=== PATIENT | female | born 1990 | race African-American/Black ===

== ENCOUNTER 2019-09-26 08:25 | Emergency (ER) | payer MEDICARE, MEDICAID ==
[~2019-09-26] VITALS: Ht 160 cm; Wt 78.9 kg
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
[2019-09-26] MEDS ORDERED: ALBU0.63 NEB (08:48)
--- NOTE | 2019-09-26 09:16 | NUR ---
PATIENT IN CT SCAN.
--- NOTE | 2019-09-26 09:27 | NUR ---
PATIENT BACK FROM CT, AMBULATED TO BATHROOM WITH STEADY GAIT.
[2019-09-26] MEDS ORDERED: HYDROcodone/APAP 5/325 TABLET ONE (09:35)
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
[2019-09-26] MEDS ORDERED: HYDROcodone/APAP 5/325 TABLET PO ONE (10:00)
--- NOTE | 2019-09-26 10:06 | NUR ---
TASK RN: PT SITTING UP ON EDGE OF BED, NO DISTRESS. AWAITING CT RESULTS
[2019-09-26 11:02] VITALS: BP 125/92
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
--- NOTE | 2019-09-26 11:31 | NUR ---
Patient given discharge instructions and they have confirmed that they understand the instructions, no questions. Patient ambulatory with steady gait to discharge desk.
== END 2019-09-26 11:32 | disposition home or self-care (01) ==
LOC: ED 09:08
DX: H57.12 Ocular pain, left eye (principal); R51 Headache; Z88.6 Allergy status to analgesic agent; Y04.8XXA Assault by other bodily force, initial encounter; Y93.89 Activity, other specified; Y92.89 Other specified places as the place of occurrence of the external cause; Y99.8 Other external cause status
CPT/HCPCS: 70450; 70486; 99285